=== PATIENT | male | born 1965 | race Caucasian/White ===

== ENCOUNTER 2020-11-17 04:59 | Emergency (ER) | payer MEDICAID ==
[~2020-11-17] VITALS: Ht 170.2 cm; Wt 83.0 kg
[2020-11-17] MEDS ORDERED: CYCLOBENZAPRINE 10MG TABLET PO ONE (05:15)
[2020-11-17] MEDS ORDERED: KETOROLAC 30MG/ML VIAL IM ONE (05:15)
[2020-11-17] MEDS ORDERED: NAP5EC MT (05:16)
[2020-11-17] MEDS ORDERED: CYCL10TA7 MT (05:16)
[2020-11-17] MEDS ORDERED: HYDROCODONE/ACETAMINOPHEN 5/325MG TABLET PO ONE (06:00)
[2020-11-17] MEDS ORDERED: DEXAMETHASONE 10 MG/ML VIAL IV ONE (06:45)
[2020-11-17 06:47] VITALS: BP 142/76
== END 2020-11-17 06:58 | disposition home or self-care (01) ==
LOC: ER 05:15
DX: M54.9 Dorsalgia, unspecified (principal)
CPT/HCPCS: 96372; 96374; 99283; J1100; J1885; Z7610